=== PATIENT | female | born 1970 | race Two or more races ===

== ENCOUNTER 2019-09-30 14:33 | Emergency (ER) | payer MEDICAID ==
[~2019-09-30] VITALS: Ht 157.5 cm; Wt 56.7 kg
--- NOTE | 2019-09-30 15:10 | NUR ---
Abscess to R and L shoulder. Patient a/ox4, breathing even and unlabored, no sob noted, needs attended, kept comfortable.
[2019-09-30 15:59] LABS: BASOPHILS # (AUTO) 0.1 /CMM (0.0-0.2); BASOPHILS % (AUTO) 0.6 % (0.0-2.0); EOSINOPHILS % (AUTO) 0.5 % (0.0-6.0); HEMATOCRIT 31 % (33-45); LYMPHOCYTES # (AUTO) 2.2 /CMM (0.8-4.8); MEAN CORPUSCULAR HGB CONC 32 g/dl (31.0-36.0); MEAN CORPUSCULAR VOLUME 82 fL (82-100); MONOCYTES # (AUTO) 0.8 /CMM (0.1-1.30); MONOCYTES % (AUTO) 6.1 % (2.0-12.0); NEUTROPHILS # (AUTO) 10.4 /CMM (1.8-8.9); NEUTROPHILS % (AUTO) 76.8 % (43.0-81.0); PLATELET COUNT (AUTO) 423 /CMM (150-450); WHITE BLOOD COUNT (AUTO) 13.6 K/uL (4.3-11.0)
[2019-09-30 16:06] LABS: CALCIUM, SERUM 7.9 mg/dL (8.5-10.1); CREATININE 0.7 mg/dL (0.6-1.3); POTASSIUM 3.7 mmol/L (3.5-5.1)
--- NOTE | 2019-09-30 16:30 | NUR ---
TEXTED DR. ANDERSEN FOR MRI APPROVAL.
[2019-09-30 16:43] LABS: C-REACTIVE PROTEIN 7.4 mg/dL (0.0-0.9)
[2019-09-30] MEDS ORDERED: METH10TA2 PO (17:12)
[2019-09-30 17:33] VITALS: BP 119/74
--- NOTE | 2019-09-30 17:33 | NUR ---
Patient discharged to home in stable condition. Written and verbal after care instructions given. Patient verbalizes understanding of instruction.
== END 2019-09-30 17:34 | disposition home or self-care (01) ==
LOC: ER 14:36
DX: L02.413 Cutaneous abscess of right upper limb (principal); Z60.2 Problems related to living alone; Z79.899 Other long term (current) drug therapy
CPT/HCPCS: 36415; 80048-TC; 85025-TC; 85652-TC; 85730-TC; 86140-TC; 86850-TC

== ENCOUNTER 2020-11-10 10:45 | Emergency (ER) | payer MEDICAID, OTHER ==
[~2020-11-10] VITALS: Ht 154.9 cm; Wt 72.6 kg
[~2020-11-10 10:45] MED LIST: METH10TA2 PO
[2020-11-10] MEDS ORDERED: OLANZAPINE 10 MG VIAL IM ONE ×2 (11:00→11:41)
[2020-11-10 11:18] LABS: BASOPHILS # (AUTO) 0.1 /CMM (0.0-0.2); BASOPHILS % (AUTO) 0.8 % (0.0-2.0); EOSINOPHILS % (AUTO) 0.8 % (0.0-6.0); HEMATOCRIT 28 % (33-45); HEMOGLOBIN 9.1 g/dL (11.5-14.8); LYMPHOCYTES # (AUTO) 3.1 /CMM (0.8-4.8); LYMPHOCYTES % (AUTO) 34.2 % (20.0-44.0); MEAN CORPUSCULAR HGB CONC 32 g/dl (31.0-36.0); MEAN CORPUSCULAR VOLUME 78 fL (82-100); MONOCYTES % (AUTO) 10.4 % (2.0-12.0); NEUTROPHILS # (AUTO) 4.9 /CMM (1.8-8.9); NEUTROPHILS % (AUTO) 53.8 % (43.0-81.0); PLATELET COUNT (AUTO) 381 /CMM (150-450); WHITE BLOOD COUNT (AUTO) 9.2 K/uL (4.3-11.0)
[2020-11-10 11:22] LABS: CALCIUM, SERUM 7.9 mg/dL (8.5-10.1); CARBON DIOXIDE 23 mmol/L (21-32); CHLORIDE 102 mmol/L (98-107); CREATININE 0.8 mg/dL (0.6-1.3); GLUCOSE 82 mg/dL (74-106); POTASSIUM 3.7 mmol/L (3.5-5.1); SODIUM SERUM 135 mmol/L (136-145); UREA NITROGEN, BLOOD 15 mg/dL (7-18)
[2020-11-10 11:27] LABS: ALANINE AMINOTRANSFERASE 225 U/L (12-78); ALBUMIN 2.8 g/dL (3.4-5.0); ALCOHOL, BLOOD < 3 mg/dL (0-0); ALKALINE PHOSPHATASE 98 U/L (46-116); ASPARTATE AMINOTRANSFERASE 221 U/L (15-37); BILIRUBIN,DIRECT 0.2 mg/dL (0.0-0.2); BILIRUBIN,TOTAL 0.4 mg/dL (0.2-1.0); TOTAL PROTEIN, SERUM 8.5 g/dL (6.4-8.2)
[2020-11-10 11:28] LABS: ACETAMINOPHEN 0 ug/ml (10-30)
--- NOTE | 2020-11-10 11:30 | NUR ---
Sitter at bedside/curtains drawn open to provide direct line of sight observation for safety. Medicated as ordered
--- NOTE | 2020-11-10 12:22 | NUR ---
Urine specimen collected and taken it to the lab.
[2020-11-10 12:51] LABS: BILIRUBIN,URINE Negative (NEGATIVE); COLOR,URINE DARK YELLOW (YELLOW); LEUKOCYTE ESTERASE ,URINE Negative (NEGATIVE); NITRITE, URINE Positive (NEGATIVE); PH,URINE 6.5 (5.0-8.0); PROTEIN,URINE Negative (NEGATIVE); UGLUCOSE Negative (NEGATIVE)
[2020-11-10 13:14] LABS: RBC,URINE 0-2 /HPF (0-2)
[2020-11-10 13:15] LABS: BACTERIA,URINE Many /HPF (None Seen); SQUAMOUS EPITHELIAL CELL,UR Few /HPF (None Seen)
--- NOTE | 2020-11-10 14:55 | NUR ---
Patient is resting comfortably in bed with eyes closed. Easily aroused. VSS
--- NOTE | 2020-11-10 16:43 | NUR ---
Patient is resting comfortably in bed with eyes closed. Easily aroused. VSS
--- NOTE | 2020-11-10 18:08 | NUR ---
pt is awake, verbally responsive. provided will meal tray. stable vitals.
--- NOTE | 2020-11-10 19:33 | NUR ---
pt is seen and re evaluated by dr agustin. denies si/hi. medically cleared for discharge. pt discharge to parent in stable condition.
[2020-11-10 19:35] VITALS: BP 115/60
== END 2020-11-10 19:36 | disposition home or self-care (01) ==
LOC: ER 10:59
DX: F15.10 Other stimulant abuse, uncomplicated (principal); Z60.2 Problems related to living alone; Z79.899 Other long term (current) drug therapy
CPT/HCPCS: 36415; 80048; 80076; 80299; 80307; 80320; 81001; 84703; 85025; 87077; 87086; 87186; 96372; 99285; J3490; G0480